=== PATIENT | female | born 1975 | race Hispanic/Latino ===

== ENCOUNTER 2023-08-10 02:44 | Emergency (ER) | payer BC ==
[~2023-08-10] VITALS: Ht 152.4 cm; Wt 114.8 kg
[2023-08-10 04:23] LABS: BASOPHILS # (AUTO) 0.04 K/uL (0.00-0.20); BASOPHILS % (AUTO) 0.6 % (0.0-5.0); EOSINOPHILS # (AUTO) 0.17 K/uL (0.00-0.70); EOSINOPHILS % (AUTO) 2.7 % (0.0-8.0); HEMATOCRIT 38.5 % (36-48); IMMATURE GRANULOCYTE ABSOLUTE 0.01 K/uL (0-1); LYMPHOCYTES # (AUTO) 2.9 K/uL (1.0-4.8); LYMPHOCYTES % (AUTO) 46.7 % (21.0-51.0); MEAN CORPUSCULAR HEMOGLOBIN 28.1 pg (27.0-33.0); MEAN CORPUSCULAR HGB CONC 32.7 g/dL (32.0-36.0); MEAN CORPUSCULAR VOLUME 85.9 fL (79-99); MONOCYTES # (AUTO) 0.5 K/uL (0.1-1.0); MONOCYTES % (AUTO) 7.2 % (3.0-13.0); NEUTROPHILS # (AUTO) 2.7 K/uL (1.8-7.7); NEUTROPHILS % (AUTO) 42.6 % (40.0-77.0); PLATELET COUNT (AUTO) 245 K/uL (130-400); RED BLOOD CELL COUNT(AUTO) 4.48 MIL/uL (4.00-5.50); RED CELL DISTRIBUTION WIDTH 14.7 % (11.0-15.5); WHITE BLOOD COUNT (AUTO) 6.3 K/uL (4.8-10.8)
[2023-08-10 04:31] LABS: ADD UA MICROSCOPIC YES; APPEARANCE,URINE CLEAR (CLEAR); BILIRUBIN,URINE NEGATIVE (NEGATIVE); COLOR,URINE LIGHT-YELLOW (YELLOW); GLUCOSE, URINE (UA) NEGATIVE (NEGATIVE); KETONES,URINE NEGATIVE (NEGATIVE); LEUKOCYTE ESTERASE ,URINE NEGATIVE Leu/uL (NEGATIVE); NITRATE,URINE NEGATIVE (NEGATIVE); OCCULT BLOOD,URINE MODERATE (NEGATIVE); PH,URINE 5.5 (5.0-8.0); PROTEIN,URINE 30 mg/dL (NEGATIVE); UROBILINOGEN,URINE 0.2 mg/dL (0.2-1.0)
[2023-08-10 04:32] LABS: CREATININE 0.6 mg/dL (0.5-1.0); POTASSIUM 3.5 mmol/L (3.5-5.1)
[2023-08-10 04:34] LABS: BACTERIA,URINE RARE /HPF (None Seen); MUCUS,URINE RARE LPF (None Seen); RBC,URINE >100 /HPF (0-1); SQUAMOUS EPITHELIAL CELL,UR FEW /HPF (0-2)
[2023-08-10] MEDS: ONDANSETRON 4MG INJ IVP ONE ×2 (05:09→11:41)
[2023-08-10] MEDS: HYDROMORPHONE 1 MG INJ IVP ONE (05:09)
[2023-08-10] MEDS ORDERED: IOHEXOL 350 MG/ML 100ML INFUS..BTL IV ONE (05:35)
[2023-08-10] MEDS: HYDROMORPHONE 1 MG INJ IVP PRN (11:41)
[2023-08-10 12:04] VITALS: BP 122/49; PULSE 77; RESP 14; O2SAT 95
[2023-08-10] MEDS ORDERED: HYDR-4060 PO (12:16)
[2023-08-10] MEDS ORDERED: ONDA-243 PO (12:16)
[2023-08-10] MEDS ORDERED: TAMS-1 PO (12:16)
== END 2023-08-10 12:56 | disposition home or self-care (01) ==
LOC: EDBD 02:44 → EDH 02:44
DX: N20.0 Calculus of kidney (principal); N23 Unspecified renal colic; C95.90 Leukemia, unspecified not having achieved remission; Z90.710 Acquired absence of both cervix and uterus
CPT/HCPCS: 99284; 74177; 96374; 71045; 96375; 80048; 83880; 85025; 87086; 81001; 36415; 96376; J1170 ×2; J2405 ×2; Q9967

== ENCOUNTER 2024-02-20 21:30 | Emergency (ER) | payer BC ==
[~2024-02-20] VITALS: Ht 152.4 cm; Wt 90.7 kg
[~2024-02-20 21:30] MED LIST: HYDR-4060 PO; ONDA-243 PO; TAMS-1 PO
--- NOTE | 2024-02-20 21:32 | NUR ---
UA CUP PROVIDED
[2024-02-20 21:53] LABS: BASOPHILS # (AUTO) 0.04 K/uL (0.00-0.20); BASOPHILS % (AUTO) 0.5 % (0.0-5.0); EOSINOPHILS # (AUTO) 0.28 K/uL (0.00-0.70); EOSINOPHILS % (AUTO) 3.3 % (0.0-8.0); HEMATOCRIT 39.5 % (36-48); IMMATURE GRANULOCYTE ABSOLUTE 0.03 K/uL (0-1); LYMPHOCYTES # (AUTO) 3.3 K/uL (1.0-4.8); LYMPHOCYTES % (AUTO) 38.5 % (21.0-51.0); MEAN CORPUSCULAR HEMOGLOBIN 28.8 pg (27.0-33.0); MEAN CORPUSCULAR HGB CONC 32.9 g/dL (32.0-36.0); MEAN CORPUSCULAR VOLUME 87.4 fL (79-99); MONOCYTES # (AUTO) 0.5 K/uL (0.1-1.0); MONOCYTES % (AUTO) 5.6 % (3.0-13.0); NEUTROPHILS # (AUTO) 4.4 K/uL (1.8-7.7); NEUTROPHILS % (AUTO) 51.7 % (40.0-77.0); PLATELET COUNT (AUTO) 227 K/uL (130-400); RED BLOOD CELL COUNT(AUTO) 4.52 MIL/uL (4.00-5.50); RED CELL DISTRIBUTION WIDTH 13.4 % (11.0-15.5); WHITE BLOOD COUNT (AUTO) 8.5 K/uL (4.8-10.8)
[2024-02-20 22:06] LABS: CREATININE 0.6 mg/dL (0.5-1.0); POTASSIUM 3.9 mmol/L (3.5-5.1)
[2024-02-20 22:35] LABS: APPEARANCE,URINE CLOUDY (CLEAR); BILIRUBIN,URINE NEGATIVE (NEGATIVE); COLOR,URINE LIGHT-ORANGE (YELLOW); GLUCOSE, URINE (UA) NEGATIVE (NEGATIVE); KETONES,URINE NEGATIVE (NEGATIVE); LEUKOCYTE ESTERASE ,URINE NEGATIVE Leu/uL (NEGATIVE); NITRATE,URINE NEGATIVE (NEGATIVE); OCCULT BLOOD,URINE LARGE (NEGATIVE); PH,URINE 6.5 (5.0-8.0); PROTEIN,URINE 30 mg/dL (NEGATIVE); UROBILINOGEN,URINE 0.2 mg/dL (0.2-1.0)
[2024-02-20 22:41] LABS: ADD UA MICROSCOPIC YES
[2024-02-20 22:46] LABS: MUCUS,URINE RARE LPF (None Seen); RBC,URINE TNTC /HPF (0-1); SQUAMOUS EPITHELIAL CELL,UR RARE /HPF (0-2); WBC,URINE 51-100 /HPF (0-1)
[2024-02-20] MEDS: ondanSETRON 4MG INJ IVP ONE (23:08)
[2024-02-20] MEDS: LACTATED RINGERS 1000ML 1,000 ML IV ONE (23:08)
[2024-02-20 23:18] LABS: ALBUMIN 3.1 g/dL (3.5-5.0); BILIRUBIN,TOTAL 0.2 mg/dL (0.2-1.0); TOTAL PROTEIN, SERUM 7.2 g/dL (6.0-8.3)
[2024-02-20] MEDS: morPHINE 4 MG SYG IVP ONE (23:27)
[2024-02-20] MEDS ORDERED: IOHEXOL-350 75 ML VIAL IV ONE (23:57)
--- NOTE | 2024-02-21 00:23 | ERN ---
General Chief Complaint: Flank Pain Stated Complaint: LEFT FLANK PAIN Time Seen by MD: 22:25 History of Present Illness Initial Comments Mrs Toure is a 48-year-old female that comes in today with left-sided flank pain. Patient has a history of chronic leukemia but reports that she has been having issues with renal stones for the last year. Patient was reports that she has been having bloody urine. She has left flank pain that is worsened. Allergies: Coded Allergies: No Known Drug Allergies (Unverified Allergy, Unknown, 08/10/23) Home Meds Active Scripts Hydrocodone/Acetaminophen (Hydrocodon-Acetaminophen 5-325) 5 Mg-325 Mg Tablet, 1-2 EACH PO Q6H for pain, #16 TAB 0 Refills Prov:JEVON MCCANN MD 08/10/23 Ondansetron (Ondansetron Odt) 4 Mg Tab.rapdis, 4 MG PO Q6HPRN PRN for nausea, #16 TAB 0 Refills Prov:JEVON MCCANN MD 08/10/23 Tamsulosin HCl (Flomax) 0.4 Mg Cap.er.24h, 0.4 MG PO DAILY, #15 CAPSULE.DR Prov:JEVON MCCANN MD 08/10/23 Past Medical History Past Medical History: Other Medical History Other: LEUKEMIA Past Surgical History: Hysterectomy, Female( History) History: Not Applicable ROS Dictation Constitutional: Negative for fever,chills, and weight loss Eyes: Negative for injury, pain,redness, and discharge ENT: Negative for injury,pain or swelling Cardiovascular: Negative for chest pain, palpitations, and edema Respiratory: Negative for shortness of breath, cough, and wheezing, Abdomen/GI: Negative for abdominal pain, nausea, vomiting, diarrhea, and constipation Back: Negative for injury and pain : Negative for injury, bleeding and discharge MS/Extremity: Negative for injury and deformity Skin: Negative for rash, and discoloration Neuro: Negative for headache, weakness, numbness, tingling, and seizure Psych: Negative for suicide ideation, homicidal ideation, and hallucinations Physical Exam Physical Exam Dictation General: awake, alert, NAD Head/Face: Normocephalic, atraumatic Eyes: PERRL, EOMI, vision at baseline ENT: oral cavity clear Neck: Trachea midline, supple Cardiovascular: RRR, normal S1/S2 Respiratory: CTAB, no respiratory distress, No rales or wheezes Abdomen: CVA tenderness in the left flank Skin: Warm, dry, normal turgor, no rash MS/Extremity: Pulses equal, no cyanosis Neuro: COAx4, GCS 15, strength 5/5, CN 2-12 intact Results Laboratory and Microbiology Lab and Micro Result Laboratory Tests Test 02/20/24 21:46 02/20/24 22:15 White Blood Count 8.5 K/uL (4.8-10.8) Red Blood Count 4.52 MIL/uL (4.00-5.50) Hemoglobin 13.0 g/dL (12.0-16.0) Hematocrit 39.5 % (36-48) Mean Corpuscular Volume 87.4 fL (79-99) Mean Corpuscular Hemoglobin 28.8 pg (27.0-33.0) Mean Corpuscular Hemoglobin Concent 32.9 g/dL (32.0-36.0) Red Cell Distribution Width 13.4 % (11.0-15.5) Platelet Count 227 K/uL (130-400) Mean Platelet Volume 10.4 fL (7.5-10.5) Immature Granulocyte % (Auto) 0.4 % (0-1) Neutrophils (%) (Auto) 51.7 % (40.0-77.0) Lymphocytes (%) (Auto) 38.5 % (21.0-51.0) Monocytes (%) (Auto) 5.6 % (3.0-13.0) Eosinophils (%) (Auto) 3.3 % (0.0-8.0) Basophils (%) (Auto) 0.5 % (0.0-5.0) Neutrophils # (Auto) 4.4 K/uL (1.8-7.7) Lymphocytes # (Auto) 3.3 K/uL (1.0-4.8) Monocytes # (Auto) 0.5 K/uL (0.1-1.0) Eosinophils # (Auto) 0.28 K/uL (0.00-0.70) Basophils # (Auto) 0.04 K/uL (0.00-0.20) Absolute Immature Granulocyte (auto 0.03 K/uL (0-1) Nucleated Red Blood Cells 0.0 % (0.0-0.19) Sodium Level 141 mmol/L (136-145) Potassium Level 3.9 mmol/L (3.5-5.1) Chloride Level 101 mmol/L (101-111) Carbon Dioxide Level 34 mmol/L (21-32) H Blood Urea Nitrogen 11 mg/dL (7-18) Creatinine 0.6 mg/dL (0.5-1.0) Glomerular Filtration Rate Calc 110 mL/min (>90) Random Glucose 138 mg/dL (70-105) H Total Calcium 8.9 mg/dL (8.5-10.1) Total Bilirubin 0.2 mg/dL (0.2-1.0) Aspartate Amino Transf (AST/SGOT) 27 U/L (10-37) Alanine Aminotransferase (ALT/SGPT) 49 U/L (12-78) Alkaline Phosphatase 94 U/L (50-136) Troponin I High Sensitivity 12 ng/L (4-50) Total Protein 7.2 g/dL (6.0-8.3) Albumin 3.1 g/dL (3.5-5.0) L Lipase 36 U/L (16-77) Urine Color LIGHT-ORANGE (YELLOW) Urine Appearance CLOUDY (CLEAR) H Urine pH 6.5 (5.0-8.0) Urine Specific [place] 1.017 (1.001-1.031) Urine Protein 30 mg/dL (NEGATIVE) H Urine Glucose (UA) NEGATIVE mg/dL (NEGATIVE) Urine Ketones NEGATIVE mg/dL (NEGATIVE) Urine Occult Blood LARGE (NEGATIVE) H Urine Nitrate NEGATIVE (NEGATIVE) Urine Bilirubin NEGATIVE mg/dL (NEGATIVE) Urine Urobilinogen 0.2 mg/dL (0.2-1.0) Urine Leukocyte Esterase NEGATIVE Mirza/uL Urine RBC TNTC /HPF (0-1) H Urine WBC 51-100 /HPF (0-1) H Urine Squamous Epithelial Cells RARE /HPF (0-2) Urine Bacteria None /HPF (None Seen) MDM Patient has an enlarged pancreatic head of 4.3 cm as well as a left renal stone of 2.2 cm. Patient at this time will be transferred for higher level of care to [facility]. MDM: Differential diagnosis: Renal stone, pancreatic mass Rationale: Tests considered and ordered secondary to shared decision making include: Previous outside records reviewed: Old ER visits. Risk of complication and/or morbidity or mortality of patient management: None Medications-Per medication reconciliation Need for hospitalization: Patient does not meet criteria for hospitalization. Need for emergency major/minor surgery: No There are no social concerns with this patient. Prescription drug management Prescriptions will include symptomatic care Patient's prior external medical records from other ER visits were reviewed by me as indicated. Prior testing and results from previous visits were reviewed. Prior tests were taken into account with medical decision making and resource utilization, independent historian/historians were used to obtain complete medical history. I independently interpreted the test that were performed, results were reviewed by me and considered findings on radiology if ordered. Medical management and examination interpretation discussions were had by me with other qualified healthcare professionals as indicated for the patient's care. ED Course Orders Procedure Category Date Status Time Urinalysis Profile LAB 02/20/24 Complete 21: Cbc With Differential LAB 02/20/24 Complete 21:31 Troponin I High LAB 02/20/24 Complete Sensitivity 22:46 Ct Abdomen/Pelvis CT 02/20/24 Resulted W/Contrast 22:46 Lactated Ringers PHA 02/20/24 Complete 1000ml (Lactated 23:00 Morphine 4mg Syg PHA 02/20/24 Complete (Morphine 4mg Syg) 23:00 Ondansetron 4mg Inj PHA 02/20/24 Complete (Zofran 4mg Inj) 23:00 Culture Urine MEGHANN 02/20/24 In Process 22:49 Comprehensive LAB 02/20/24 Complete Metabolic Panel 21:46 Lipase LAB 02/20/24 Complete 21:46 Iohexol (Omnipaque) PHA 02/20/24 Complete 23:57 Current Medications Medications (Trade) Dose Ordered Sig/Eldon Route PRN Reason Start Time Stop Time Status Last Admin Dose Admin Iohexol (Omnipaque) 75 ml STK-MED ONCE IV 02/20/24 23:57 02/21/24 00:03 DC Lactated Ringer's 1,000 ml @ 0 mls/hr ONCE ONCE IV 02/20/24 23:00 02/20/24 23:01 DC 02/20/24 23:08 Morphine Sulfate (morPHINE 4MG SYG) 4 mg ONCE ONCE IVP 02/20/24 23:00 02/20/24 23:01 DC 02/20/24 23:27 Ondansetron HCl (zoFRAN 4MG INJ) 4 mg ONCE ONCE IVP 02/20/24 23:00 02/20/24 23:01 DC 02/20/24 23:08 Vital Signs Date Time Temp Pulse Resp B/P (MAP) Pulse Ox O2 Delivery O2 Flow Rate FiO2 02/21/24 04:16 98.4 81 17 120/65 96 Room Air* 0 21 02/21/24 03:20 80 17 126/59 96 Room Air* 0 02/20/24 23:28 85 17 139/45 97 Room Air* 0 02/20/24 21:31 97.9 88 16 105/86 100 Room Air DX & DISP Disposition: Transfer Departure Impression: Primary Impression: Left renal stone Additional Impression: Pancreatic abnormality Condition: Stable Referrals: YOLY AGUILAR MD (PCP) ISHAAN WALLACE MD Feb 21, 2024 00:23
--- NOTE | 2024-02-21 00:52 | HMCIMG ---
CT ABDOMEN/PELVIS W/CONTRAST HISTORY: Abdominal pain COMPARISON: 08/10/2023 TECHNIQUE: Multiple sequential axial images of the abdomen and pelvis were obtained from the dome of the diaphragm through symphysis pubis. Patient was given 75 cc of Omnipaque through intravenous route. Oral contrast was not given. FINDINGS: The study is limited due to patient's large body habitus. No pleural effusion is seen bilaterally. There is no evidence of parenchymal disease or pulmonary nodule of the visualized lower lungs. Degenerative changes of the thoracolumbar spine are present. The heart is not enlarged. Liver measures 16.2 cm. Pancreatic head is enlarged measuring 4.3 cm and clinical correlation is recommended. Mild small bowel dilatation is seen. The liver, spleen, adrenal glands and pancreas are unremarkable. There is no evidence of hydronephrosis bilaterally. There are bilateral renal pelvic stones with the largest on the left measuring 2.2 cm. No bowel obstruction is seen. Fecal material is seen in the colon. There are normal size retroperitoneal and mesenteric lymph nodes. No ascites is seen. Appendix is not well seen limiting evaluation. Uterus is not seen. Pelvic sidewalls are symmetric bilaterally. Bladder is well distended without wall thickening. IMPRESSION: 1. Bilateral renal pelvic stones without hydronephrosis. Fecal material in the colon. CT was performed with one or more following dose reduction techniques: automated exposure control, adjustment of the mA and kv according to patient's size, or use of a iterative reconstruction technique.
--- NOTE | 2024-02-21 02:15 | NUR ---
SPOKE WITH JASPER AT [facility] [place] [facility]. TRANSFER REQUEST FOR UROLOGY INITIATED.
[2024-02-21 04:16] VITALS: BP 120/65; PULSE 81; RESP 17; TEMP 98.4; O2SAT 96
== END 2024-02-21 05:14 | disposition short-term general hospital (02) ==
LOC: EDH 21:30
DX: N20.0 Calculus of kidney (principal); K86.9 Disease of pancreas, unspecified; Z90.710 Acquired absence of both cervix and uterus
CPT/HCPCS: 99285; 74177; 96374; 96375; 84484; 80053; 83690; 85025; 87086; 81001; 36415; J7120; J2405; J2270; Q9967